=== PATIENT | female | born 1970 | race Caucasian/White ===

== ENCOUNTER 2021-06-08 22:02 | Inpatient (IN) | payer MEDICAID, SELFPAY ==
[~2021-06-08] VITALS: Ht 160 cm; Wt 100.2 kg
[2021-06-08] MEDS ORDERED: ACETAMINOPHEN 325MG TABLET PO STA (22:46)
[2021-06-08] MEDS ORDERED: SODIUM CHLORIDE 0.9% 1,000 ML IV ONE (23:00)
[2021-06-08 23:10] LABS: HEMATOCRIT. 39.4 % (36.0-48.0); HEMOGLOBIN. 13.5 g/dL (12.0-16.0); LYMPHOCYTES % 13.6 % (20.0-50.0); MEAN CORPUSCULAR HEMOGLOBIN 31.5 pg (28.0-32.0); MEAN CORPUSCULAR VOLUME 91.9 fL (81.0-99.0); MEAN PLATELET VOLUME 9.6 fl (7.4-10.4); MONOCYTES % 2.9 % (2.0-8.0); NEUTROPHILS % 83.5 % (40.0-76.0); PLATELET 165 x1000/uL (130-400); RED BLOOD CELL COUNT 4.29 mill/uL (4.2-5.4); RED CELL DISTRIBUTION WIDTH 13.1 % (11.6-14.6)
[2021-06-08 23:17] LABS: CHLORIDE 106 mEq/L (98-107)
[2021-06-09 00:20] LABS: BG BASE EXCESS -1.9 mmol/L (-2.0-2.0); BG CARBOXYHEMOGLOBIN 0.3 % (0.5-1.5); BG DEOXYHEMOGLOBIN 4.9 % (0.0-5.0); BG HCO3 ACT 22.1 mmol/L (22.0-26.0); BG METHEMOGLOBIN 0.2 % (0.0-1.5); BG OXYGEN SATURATION 95.1 % (92.0-98.5); BG OXYHEMOGLOBIN 94.6 % (94.0-97.0); BG PCO2 35.4 mmHg (35.0-45.0); BG PH 7.414 (7.350-7.450); BG PO2 77.6 mmHg (75.0-100.0); BG SAMPLE SITE LEFT RADIAL; BG TOTAL HEMOGLOBIN 12.6 g/dL (12.0-18.0); BG VENT MODE NASAL CANNULA
[2021-06-09] MEDS ORDERED: ONDANSETRON HCL 4MG/2ML INJ IV PRN (09:45)
[2021-06-09] MEDS ORDERED: CLONIDINE 0.1MG TABLET PO PRN (09:45)
[2021-06-09] MEDS ORDERED: DIPHENHYDRAMINE 50MG/ML VIAL IV PRN (09:45)
[2021-06-09] MEDS ORDERED: CEFTRIAXONE 1 G PREMIX 50 ML IV SCH (10:00)
[2021-06-09] MEDS ORDERED: AZITHROMYCIN 500 MG in DEXT 5% WATER 250 ML IV SCH (10:00)
[2021-06-09] MEDS: ENOXAPARIN 30MG/0.3ML SYR SUBCUT SCH ×2 (10:55→20:41)
[2021-06-09] MEDS: ACETAMINOPHEN 325MG TABLET PO PRN ×3 (10:55→23:54)
[2021-06-09] MEDS: DEXAMETHASONE 10 MG/ML VIAL IV SCH (10:55)
[2021-06-09 12:02] LABS: CLARITY URINE CLEAR (CLEAR); COLOR URINE YELLOW (YELLOW); KETONES URINE 2+ (NEGATIVE); LEUKOCYTE ESTERASE URINE NEGATIVE (NEGATIVE); NITRITE URINE NEGATIVE (NEGATIVE); OCCULT BLOOD URINE NEGATIVE (NEGATIVE); PROTEIN URINE 1+ (NEGATIVE); SPECIFIC GRAVITY URINE 1.045 (1.005-1.030)
[2021-06-09] MEDS ORDERED: DEXTROSE 50% WATER 50ML SYRINGE IV PRN (12:45)
[2021-06-09] MEDS: INSULIN LISPRO 100 UNITS/ML SUBCUT SCH ×3 (13:04→20:43)
[2021-06-09] MEDS: BLOOD SUGAR DIAGNOSTIC STRIP TEST SCH ×2 (17:02→20:43)
[2021-06-10 05:20] LABS: BASOPHILS % 0.1 % (0.0-2.0); HEMATOCRIT. 37.2 % (36.0-48.0); HEMOGLOBIN. 12.9 g/dL (12.0-16.0); LYMPHOCYTES % 15.5 % (20.0-50.0); MEAN CORPUSCULAR HEMOGLOBIN 31.8 pg (28.0-32.0); MEAN CORPUSCULAR VOLUME 91.9 fL (81.0-99.0); MEAN PLATELET VOLUME 9.7 fl (7.4-10.4); MONOCYTES % 6.1 % (2.0-8.0); NEUTROPHILS % 78.3 % (40.0-76.0); PLATELET 198 x1000/uL (130-400); RED BLOOD CELL COUNT 4.05 mill/uL (4.2-5.4); RED CELL DISTRIBUTION WIDTH 13.1 % (11.6-14.6)
[2021-06-10 05:29] LABS: CHLORIDE 110 mEq/L (98-107)
[2021-06-10 05:39] LABS: LDL CHOLESTEROL 72 mg/dL (5-100)
[2021-06-10 05:40] LABS: HDL CHOLESTEROL 30 mg/dL (40-59)
[2021-06-10] MEDS: BLOOD SUGAR DIAGNOSTIC STRIP TEST SCH ×4 (06:34→21:00)
[2021-06-10] MEDS: ACETAMINOPHEN 325MG TABLET PO PRN ×2 (06:39→22:23)
[2021-06-10] MEDS: INSULIN LISPRO 100 UNITS/ML SUBCUT SCH ×4 (06:40→22:21)
[2021-06-10] MEDS: ENOXAPARIN 30MG/0.3ML SYR SUBCUT SCH ×2 (10:12→22:22)
[2021-06-10] MEDS ORDERED: TOPUD PO (10:37)
[2021-06-10] MEDS ORDERED: METF-874 MT (10:37)
[2021-06-10 11:12] VITALS: BP 120/58
[2021-06-10] MEDS ORDERED: CEFTRIAXONE 1,000 MG in DEXTROSE 5% WATER 50 ML IV SCH (11:30)
[2021-06-10] MEDS: CEFTRIAXONE 1,000 MG in DEXTROSE 5% WATER 50 ML IV SCH (11:41)
[2021-06-10] MEDS: DEXAMETHASONE 10 MG/ML VIAL IV SCH (11:41)
[2021-06-10] MEDS: AZITHROMYCIN 500 MG in DEXT 5% WATER 250 ML IV SCH (11:42)
[2021-06-10 12:00] VITALS: BP 108/61
[2021-06-10] MEDS: BENZONATATE 100MG CAPSULE PO PRN (15:20)
[2021-06-10 16:00] VITALS: BP 135/81
[2021-06-10 20:00] VITALS: BP 105/56
[2021-06-10] MEDS ORDERED: INSULIN GLARGINE UD 100 UNITS/ML SYR SUBCUT SCH (22:00)
[2021-06-10] MEDS: GUAIFENESIN 200MG/10ML SUGAR FREE UDC PO PRN (22:22)
[2021-06-11 00:21] VITALS: BP 111/58
[2021-06-11 04:00] VITALS: BP 104/58
[2021-06-11] MEDS: GUAIFENESIN 200MG/10ML SUGAR FREE UDC PO PRN ×3 (05:42→18:23)
[2021-06-11] MEDS: BLOOD SUGAR DIAGNOSTIC STRIP TEST SCH ×4 (07:38→21:00)
[2021-06-11 08:00] VITALS: BP 99/60
[2021-06-11] MEDS: DEXAMETHASONE 10 MG/ML VIAL IV SCH (09:11)
[2021-06-11] MEDS: BENZONATATE 100MG CAPSULE PO PRN ×2 (09:11→21:16)
[2021-06-11] MEDS: INSULIN LISPRO 100 UNITS/ML SUBCUT SCH ×4 (09:12→21:17)
[2021-06-11] MEDS: ENOXAPARIN 30MG/0.3ML SYR SUBCUT SCH ×2 (09:12→21:16)
[2021-06-11 12:00] VITALS: BP 125/69
[2021-06-11] MEDS: ALBUTEROL 6.7GM HFA INHALER ORI PRN (12:12)
[2021-06-11] MEDS: CEFTRIAXONE 1,000 MG in DEXTROSE 5% WATER 50 ML IV SCH (12:12)
[2021-06-11] MEDS: PANTOPRAZOLE 40MG DR TABLET PO SCH (13:18)
[2021-06-11] MEDS: AZITHROMYCIN 500 MG in DEXT 5% WATER 250 ML IV SCH (13:18)
[2021-06-11] MEDS ORDERED: INSULIN GLARGINE UD 100 UNITS/ML SYR SUBCUT NR (15:00)
[2021-06-11] MEDS: ACETAMINOPHEN 325MG TABLET PO PRN ×2 (15:54→21:29)
[2021-06-11 16:00] VITALS: BP 111/64
[2021-06-11] MEDS: IVERMECTIN 3 MG TABLET PO SCH (18:23)
[2021-06-11 20:00] VITALS: BP 102/54
[2021-06-11] MEDS: INSULIN GLARGINE UD 100 UNITS/ML SYR SUBCUT SCH (21:16)
[2021-06-12] VITALS: BP 114/59
[2021-06-12] MEDS: ALBUTEROL 6.7GM HFA INHALER ORI PRN (03:05)
[2021-06-12] MEDS: GUAIFENESIN 200MG/10ML SUGAR FREE UDC PO PRN ×3 (03:05→15:45)
[2021-06-12 04:00] VITALS: BP 102/54
[2021-06-12] MEDS: BLOOD SUGAR DIAGNOSTIC STRIP TEST SCH ×4 (07:46→21:00)
[2021-06-12] MEDS: INSULIN LISPRO 100 UNITS/ML SUBCUT SCH ×4 (07:51→22:42)
[2021-06-12 08:00] VITALS: BP 107/62
[2021-06-12] MEDS: BENZONATATE 100MG CAPSULE PO PRN ×2 (08:10→22:41)
[2021-06-12] MEDS: DEXAMETHASONE 10 MG/ML VIAL IV SCH (08:10)
[2021-06-12] MEDS: PANTOPRAZOLE 40MG DR TABLET PO SCH (08:10)
[2021-06-12] MEDS: ACETAMINOPHEN 325MG TABLET PO PRN ×3 (08:11→22:42)
[2021-06-12] MEDS: ENOXAPARIN 30MG/0.3ML SYR SUBCUT SCH ×2 (08:11→22:41)
[2021-06-12] MEDS: INSULIN GLARGINE UD 100 UNITS/ML SYR SUBCUT SCH ×2 (11:31→22:42)
[2021-06-12] MEDS: CEFTRIAXONE 1,000 MG in DEXTROSE 5% WATER 50 ML IV SCH (11:32)
[2021-06-12 12:00] VITALS: BP 146/64
[2021-06-12] MEDS: AZITHROMYCIN 500 MG in DEXT 5% WATER 250 ML IV SCH (12:45)
[2021-06-12 16:00] VITALS: BP 116/65
[2021-06-12] MEDS: IVERMECTIN 3 MG TABLET PO SCH (17:34)
[2021-06-12 20:00] VITALS: BP 125/69
[2021-06-13] VITALS: BP 103/56
[2021-06-13] MEDS: ALBUTEROL 6.7GM HFA INHALER ORI PRN (02:25)
[2021-06-13] MEDS: GUAIFENESIN 200MG/10ML SUGAR FREE UDC PO PRN (02:25)
[2021-06-13 04:00] VITALS: BP 103/64
[2021-06-13 06:57] LABS: CHLORIDE 105 mEq/L (98-107)
[2021-06-13 06:59] LABS: BASOPHILS % 0.1 % (0.0-2.0); EOSINOPHILS % 0.8 % (0.0-5.0); HEMATOCRIT. 37.3 % (36.0-48.0); HEMOGLOBIN. 12.9 g/dL (12.0-16.0); LYMPHOCYTES % 32.7 % (20.0-50.0); MEAN CORPUSCULAR HEMOGLOBIN 31.2 pg (28.0-32.0); MEAN CORPUSCULAR VOLUME 90.4 fL (81.0-99.0); MEAN PLATELET VOLUME 9.1 fl (7.4-10.4); MONOCYTES % 6.8 % (2.0-8.0); NEUTROPHILS % 59.6 % (40.0-76.0); PLATELET 262 x1000/uL (130-400); RED BLOOD CELL COUNT 4.13 mill/uL (4.2-5.4); RED CELL DISTRIBUTION WIDTH 12.9 % (11.6-14.6)
[2021-06-13] MEDS: BLOOD SUGAR DIAGNOSTIC STRIP TEST SCH ×4 (07:40→21:19)
[2021-06-13 08:00] VITALS: BP 99/57
[2021-06-13] MEDS: INSULIN LISPRO 100 UNITS/ML SUBCUT SCH ×4 (08:10→21:18)
[2021-06-13] MEDS ORDERED: AZITHROMYCIN 500 MG TABLET PO SCH (09:00)
[2021-06-13] MEDS: ACETAMINOPHEN 325MG TABLET PO PRN (09:07)
[2021-06-13] MEDS: BENZONATATE 100MG CAPSULE PO PRN (09:07)
[2021-06-13] MEDS: PANTOPRAZOLE 40MG DR TABLET PO SCH (09:07)
[2021-06-13] MEDS: DEXAMETHASONE 10 MG/ML VIAL IV SCH (09:08)
[2021-06-13] MEDS: ENOXAPARIN 30MG/0.3ML SYR SUBCUT SCH ×2 (09:37→21:19)
[2021-06-13] MEDS: CEFTRIAXONE 1,000 MG in DEXTROSE 5% WATER 50 ML IV SCH (10:57)
[2021-06-13] MEDS: INSULIN GLARGINE UD 100 UNITS/ML SYR SUBCUT SCH ×2 (10:57→21:19)
[2021-06-13 12:00] VITALS: BP 103/52
[2021-06-13 16:00] VITALS: BP 110/65
[2021-06-13] MEDS: IVERMECTIN 3 MG TABLET PO SCH (17:19)
[2021-06-13 20:00] VITALS: BP 120/69
[2021-06-14] VITALS: BP 120/67
[2021-06-14] MEDS: GUAIFENESIN 200MG/10ML SUGAR FREE UDC PO PRN ×3 (01:25→22:52)
[2021-06-14 04:00] VITALS: BP 103/59
[2021-06-14] MEDS: ACETAMINOPHEN 325MG TABLET PO PRN (05:54)
[2021-06-14 08:00] VITALS: BP 91/57
[2021-06-14] MEDS: INSULIN LISPRO 100 UNITS/ML SUBCUT SCH ×4 (08:10→22:45)
[2021-06-14] MEDS: BLOOD SUGAR DIAGNOSTIC STRIP TEST SCH ×4 (08:38→21:00)
[2021-06-14 08:58] LABS: BASOPHILS % 0.1 % (0.0-2.0); EOSINOPHILS % 1.7 % (0.0-5.0); HEMATOCRIT. 36.9 % (36.0-48.0); HEMOGLOBIN. 12.5 g/dL (12.0-16.0); MEAN CORPUSCULAR HEMOGLOBIN 30.5 pg (28.0-32.0); MEAN CORPUSCULAR VOLUME 90.4 fL (81.0-99.0); MEAN PLATELET VOLUME 8.8 fl (7.4-10.4); MONOCYTES % 6.9 % (2.0-8.0); NEUTROPHILS % 67.3 % (40.0-76.0); PLATELET 270 x1000/uL (130-400); RED BLOOD CELL COUNT 4.09 mill/uL (4.2-5.4); RED CELL DISTRIBUTION WIDTH 12.9 % (11.6-14.6)
[2021-06-14 09:01] LABS: CHLORIDE 106 mEq/L (98-107)
[2021-06-14] MEDS: DEXAMETHASONE 10 MG/ML VIAL IV SCH (09:16)
[2021-06-14] MEDS: FAMOTIDINE 20MG TABLET PO SCH ×2 (09:16→22:44)
[2021-06-14] MEDS: ENOXAPARIN 30MG/0.3ML SYR SUBCUT SCH ×2 (09:16→22:44)
[2021-06-14] MEDS: INSULIN GLARGINE UD 100 UNITS/ML SYR SUBCUT SCH ×2 (10:46→22:45)
[2021-06-14 12:00] VITALS: BP 95/56
[2021-06-14 16:00] VITALS: BP 127/67
[2021-06-14] MEDS ORDERED: POTASSIUM CHLORIDE 20MEQ TABLET SR PO NR (17:03)
[2021-06-14] MEDS: IVERMECTIN 3 MG TABLET PO SCH (17:34)
[2021-06-14 20:00] VITALS: BP 104/65
[2021-06-14] MEDS: ALBUTEROL 6.7GM HFA INHALER ORI PRN (22:52)
[2021-06-15] VITALS: BP 104/57
[2021-06-15 04:00] VITALS: BP 85/48
[2021-06-15] MEDS: ACETAMINOPHEN 325MG TABLET PO PRN ×2 (05:44→11:13)
[2021-06-15] MEDS: GUAIFENESIN 200MG/10ML SUGAR FREE UDC PO PRN ×3 (05:44→22:19)
[2021-06-15] MEDS: INSULIN LISPRO 100 UNITS/ML SUBCUT SCH ×4 (07:59→22:19)
[2021-06-15] MEDS: BLOOD SUGAR DIAGNOSTIC STRIP TEST SCH ×4 (07:59→21:00)
[2021-06-15 08:00] VITALS: BP 97/54
[2021-06-15] MEDS: FAMOTIDINE 20MG TABLET PO SCH ×2 (11:01→22:10)
[2021-06-15] MEDS: ENOXAPARIN 30MG/0.3ML SYR SUBCUT SCH ×2 (11:01→22:10)
[2021-06-15] MEDS: DEXAMETHASONE 10 MG/ML VIAL IV SCH (11:01)
[2021-06-15] MEDS: INSULIN GLARGINE UD 100 UNITS/ML SYR SUBCUT SCH ×2 (11:07→22:11)
[2021-06-15 12:00] VITALS: BP 95/46
[2021-06-15] MEDS: BENZONATATE 100MG CAPSULE PO PRN (14:41)
[2021-06-15 16:00] VITALS: BP 104/67
[2021-06-15] MEDS: IVERMECTIN 3 MG TABLET PO SCH (17:12)
[2021-06-15 20:00] VITALS: BP 109/63
[2021-06-16] VITALS: BP 99/48
[2021-06-16] MEDS: ACETAMINOPHEN 325MG TABLET PO PRN ×3 (03:15→17:12)
[2021-06-16] MEDS: GUAIFENESIN 200MG/10ML SUGAR FREE UDC PO PRN ×3 (03:15→17:12)
[2021-06-16 04:00] VITALS: BP 107/68
[2021-06-16 07:29] LABS: BASOPHILS % 0.2 % (0.0-2.0); CHLORIDE 107 mEq/L (98-107); EOSINOPHILS % 1.1 % (0.0-5.0); HEMATOCRIT. 37.7 % (36.0-48.0); HEMOGLOBIN. 12.3 g/dL (12.0-16.0); MEAN CORPUSCULAR HEMOGLOBIN 30.2 pg (28.0-32.0); MEAN CORPUSCULAR VOLUME 92.3 fL (81.0-99.0); MEAN PLATELET VOLUME 9.5 fl (7.4-10.4); MONOCYTES % 6.3 % (2.0-8.0); NEUTROPHILS % 72.4 % (40.0-76.0); PLATELET 276 x1000/uL (130-400); RED BLOOD CELL COUNT 4.08 mill/uL (4.2-5.4); RED CELL DISTRIBUTION WIDTH 12.8 % (11.6-14.6)
[2021-06-16] MEDS: BLOOD SUGAR DIAGNOSTIC STRIP TEST SCH ×4 (07:31→20:45)
[2021-06-16 08:00] VITALS: BP 92/59
[2021-06-16] MEDS: INSULIN LISPRO 100 UNITS/ML SUBCUT SCH ×4 (08:10→20:44)
[2021-06-16] MEDS: DEXAMETHASONE 10 MG/ML VIAL IV SCH (09:27)
[2021-06-16] MEDS: FAMOTIDINE 20MG TABLET PO SCH ×2 (09:27→20:44)
[2021-06-16] MEDS: ENOXAPARIN 30MG/0.3ML SYR SUBCUT SCH ×2 (09:29→20:44)
[2021-06-16] MEDS: INSULIN GLARGINE UD 100 UNITS/ML SYR SUBCUT SCH ×2 (09:29→22:26)
[2021-06-16 12:00] VITALS: BP_SYST 111; BP_SYST 82; BP_DIAS 46; BP_DIAS 69
[2021-06-16 16:00] VITALS: BP 111/69
[2021-06-16 20:00] VITALS: BP 100/57
[2021-06-17] MEDS: GUAIFENESIN 200MG/10ML SUGAR FREE UDC PO PRN ×2 (02:25→08:11)
[2021-06-17] MEDS: ACETAMINOPHEN 325MG TABLET PO PRN ×2 (02:27→14:37)
[2021-06-17 04:00] VITALS: BP 103/53
[2021-06-17] MEDS: INSULIN LISPRO 100 UNITS/ML SUBCUT SCH ×4 (06:27→21:27)
[2021-06-17] MEDS: BLOOD SUGAR DIAGNOSTIC STRIP TEST SCH ×4 (06:27→21:26)
[2021-06-17 08:00] VITALS: BP 105/63
[2021-06-17] MEDS: ENOXAPARIN 30MG/0.3ML SYR SUBCUT SCH ×2 (08:11→21:26)
[2021-06-17] MEDS: FAMOTIDINE 20MG TABLET PO SCH ×2 (08:11→21:25)
[2021-06-17] MEDS: DEXAMETHASONE 10 MG/ML VIAL IV SCH (08:11)
[2021-06-17] MEDS: INSULIN GLARGINE UD 100 UNITS/ML SYR SUBCUT SCH ×2 (09:30→21:26)
[2021-06-17 12:00] VITALS: BP 110/61
[2021-06-17 16:00] VITALS: BP 110/59
[2021-06-17 20:00] VITALS: BP 108/76
[2021-06-17] MEDS: BENZONATATE 100MG CAPSULE PO PRN (21:32)
[2021-06-18] VITALS: BP 91/50
[2021-06-18 04:00] VITALS: BP 102/58
[2021-06-18] MEDS: BLOOD SUGAR DIAGNOSTIC STRIP TEST SCH ×4 (06:37→20:52)
[2021-06-18] MEDS: ACETAMINOPHEN 325MG TABLET PO PRN ×2 (06:39→16:43)
[2021-06-18] MEDS: INSULIN LISPRO 100 UNITS/ML SUBCUT SCH ×4 (07:09→20:54)
[2021-06-18] MEDS: GUAIFENESIN 200MG/10ML SUGAR FREE UDC PO PRN ×2 (07:59→17:12)
[2021-06-18 08:00] VITALS: BP 99/44
[2021-06-18] MEDS: DEXAMETHASONE 10 MG/ML VIAL IV SCH (08:00)
[2021-06-18] MEDS: ENOXAPARIN 30MG/0.3ML SYR SUBCUT SCH ×2 (08:00→20:55)
[2021-06-18] MEDS: FAMOTIDINE 20MG TABLET PO SCH ×2 (08:00→20:53)
[2021-06-18] MEDS: INSULIN GLARGINE UD 100 UNITS/ML SYR SUBCUT SCH ×2 (09:45→20:53)
[2021-06-18 12:00] VITALS: BP 118/86
[2021-06-18 16:00] VITALS: BP 107/56
[2021-06-18 20:00] VITALS: BP 95/45
[2021-06-18] MEDS: BENZONATATE 100MG CAPSULE PO PRN (20:57)
[2021-06-19] VITALS: BP 97/54
[2021-06-19 04:00] VITALS: BP 107/63
[2021-06-19] MEDS: BLOOD SUGAR DIAGNOSTIC STRIP TEST SCH ×4 (06:35→21:00)
[2021-06-19] MEDS: INSULIN LISPRO 100 UNITS/ML SUBCUT SCH ×4 (08:10→22:20)
[2021-06-19] MEDS: FAMOTIDINE 20MG TABLET PO SCH ×2 (09:06→21:20)
[2021-06-19] MEDS: DEXAMETHASONE 10 MG/ML VIAL IV SCH (09:06)
[2021-06-19] MEDS: ACETAMINOPHEN 325MG TABLET PO PRN ×2 (09:07→16:26)
[2021-06-19] MEDS: ENOXAPARIN 30MG/0.3ML SYR SUBCUT SCH ×2 (09:07→21:20)
[2021-06-19] MEDS: GUAIFENESIN 200MG/10ML SUGAR FREE UDC PO PRN ×2 (10:35→16:11)
[2021-06-19] MEDS: INSULIN GLARGINE UD 100 UNITS/ML SYR SUBCUT SCH ×2 (10:53→22:20)
[2021-06-19 12:00] VITALS: BP 88/46
[2021-06-19 16:00] VITALS: BP 98/54
[2021-06-19 20:00] VITALS: BP 100/53
[2021-06-20 00:41] VITALS: BP 125/63
[2021-06-20] MEDS: ACETAMINOPHEN 325MG TABLET PO PRN ×3 (03:31→20:18)
[2021-06-20 04:00] VITALS: BP 107/65
[2021-06-20] MEDS: INSULIN LISPRO 100 UNITS/ML SUBCUT SCH ×4 (08:10→20:21)
[2021-06-20] MEDS: BLOOD SUGAR DIAGNOSTIC STRIP TEST SCH ×4 (08:18→20:22)
[2021-06-20] MEDS: FAMOTIDINE 20MG TABLET PO SCH ×2 (10:11→20:18)
[2021-06-20] MEDS: DEXAMETHASONE 10 MG/ML VIAL IV SCH (10:12)
[2021-06-20] MEDS: ENOXAPARIN 30MG/0.3ML SYR SUBCUT SCH ×2 (10:12→20:19)
[2021-06-20] MEDS: INSULIN GLARGINE UD 100 UNITS/ML SYR SUBCUT SCH ×2 (10:13→20:23)
[2021-06-20 12:00] VITALS: BP 112/64
[2021-06-20 16:00] VITALS: BP 97/43
[2021-06-20 20:00] VITALS: BP 95/56
[2021-06-20] MEDS: GUAIFENESIN 200MG/10ML SUGAR FREE UDC PO PRN (20:18)
[2021-06-21] VITALS: BP 95/57
[2021-06-21 04:00] VITALS: BP 83/50
[2021-06-21 08:00] VITALS: BP 98/53
[2021-06-21] MEDS: INSULIN LISPRO 100 UNITS/ML SUBCUT SCH ×4 (08:10→20:04)
[2021-06-21] MEDS: BLOOD SUGAR DIAGNOSTIC STRIP TEST SCH ×4 (08:32→20:04)
[2021-06-21] MEDS: ENOXAPARIN 30MG/0.3ML SYR SUBCUT SCH ×2 (08:52→20:04)
[2021-06-21] MEDS: GUAIFENESIN 200MG/10ML SUGAR FREE UDC PO PRN ×2 (08:52→17:49)
[2021-06-21] MEDS: DEXAMETHASONE 10 MG/ML VIAL IV SCH (08:53)
[2021-06-21] MEDS: ACETAMINOPHEN 325MG TABLET PO PRN ×2 (08:53→15:12)
[2021-06-21] MEDS: FAMOTIDINE 20MG TABLET PO SCH ×2 (08:53→20:03)
[2021-06-21 09:42] LABS: BG BASE EXCESS 0.7 mmol/L (-2.0-2.0); BG CARBOXYHEMOGLOBIN 0.1 % (0.5-1.5); BG DEOXYHEMOGLOBIN 9.7 % (0.0-5.0); BG FRACTION INSPIRED OXYGEN 30; BG HCO3 ACT 24.5 mmol/L (22.0-26.0); BG METHEMOGLOBIN 0.2 % (0.0-1.5); BG OXYGEN SATURATION 90.3 % (92.0-98.5); BG PCO2 36.5 mmHg (35.0-45.0); BG PH 7.444 (7.350-7.450); BG PO2 58.5 mmHg (75.0-100.0); BG SAMPLE SITE RIGHT BRACHIAL; BG TOTAL HEMOGLOBIN 13.9 g/dL (12.0-18.0); BG VENT MODE NASAL CANNULA
[2021-06-21] MEDS: INSULIN GLARGINE UD 100 UNITS/ML SYR SUBCUT SCH ×2 (09:49→22:00)
[2021-06-21 12:00] VITALS: BP 101/56
[2021-06-21 16:00] VITALS: BP 92/52
[2021-06-21 20:00] VITALS: BP 106/47
[2021-06-22] VITALS: BP 120/68
[2021-06-22 04:00] VITALS: BP 118/68
[2021-06-22] MEDS: BLOOD SUGAR DIAGNOSTIC STRIP TEST SCH ×4 (04:41→21:49)
[2021-06-22 06:07] LABS: CHLORIDE 104 mEq/L (98-107)
[2021-06-22 06:20] LABS: BASOPHILS % 0.4 % (0.0-2.0); EOSINOPHILS % 0.3 % (0.0-5.0); HEMATOCRIT. 39.4 % (36.0-48.0); HEMOGLOBIN. 13.5 g/dL (12.0-16.0); LYMPHOCYTES % 35.3 % (20.0-50.0); MEAN CORPUSCULAR HEMOGLOBIN 31.3 pg (28.0-32.0); MEAN CORPUSCULAR VOLUME 91.5 fL (81.0-99.0); MONOCYTES % 8.1 % (2.0-8.0); NEUTROPHILS % 55.9 % (40.0-76.0); PLATELET 251 x1000/uL (130-400); RED BLOOD CELL COUNT 4.31 mill/uL (4.2-5.4); RED CELL DISTRIBUTION WIDTH 12.6 % (11.6-14.6)
[2021-06-22 08:00] VITALS: BP 114/62
[2021-06-22] MEDS: ENOXAPARIN 30MG/0.3ML SYR SUBCUT SCH ×2 (09:05→21:53)
[2021-06-22] MEDS: FAMOTIDINE 20MG TABLET PO SCH ×2 (09:05→21:54)
[2021-06-22] MEDS: INSULIN LISPRO 100 UNITS/ML SUBCUT SCH ×4 (09:27→21:56)
[2021-06-22] MEDS: INSULIN GLARGINE UD 100 UNITS/ML SYR SUBCUT SCH ×2 (10:57→21:57)
[2021-06-22] MEDS: ACETAMINOPHEN 325MG TABLET PO PRN ×2 (11:04→21:54)
[2021-06-22] MEDS: GUAIFENESIN 200MG/10ML SUGAR FREE UDC PO PRN (11:04)
[2021-06-22 12:00] VITALS: BP 87/54
[2021-06-22 14:35] LABS: BG BASE EXCESS -0.1 mmol/L (-2.0-2.0); BG CARBOXYHEMOGLOBIN 0.5 % (0.5-1.5); BG DEOXYHEMOGLOBIN 9.4 % (0.0-5.0); BG FRACTION INSPIRED OXYGEN 21; BG HCO3 ACT 23.3 mmol/L (22.0-26.0); BG METHEMOGLOBIN 0.2 % (0.0-1.5); BG OXYGEN SATURATION 90.5 % (92.0-98.5); BG OXYHEMOGLOBIN 89.9 % (94.0-97.0); BG PCO2 34.2 mmHg (35.0-45.0); BG PH 7.451 (7.350-7.450); BG PO2 58.2 mmHg (75.0-100.0); BG SAMPLE SITE LEFT BRACHIAL; BG TOTAL HEMOGLOBIN 13.9 g/dL (12.0-18.0); BG VENT MODE ROOM AIR
[2021-06-22 16:00] VITALS: BP 93/58
[2021-06-22 20:00] VITALS: BP 109/64
[2021-06-23] VITALS: BP 108/63
[2021-06-23 04:00] VITALS: BP 85/47
[2021-06-23] MEDS: INSULIN LISPRO 100 UNITS/ML SUBCUT SCH (05:36)
[2021-06-23] MEDS: BLOOD SUGAR DIAGNOSTIC STRIP TEST SCH (05:36)
[2021-06-23 08:00] VITALS: BP 75/45
[2021-06-23] MEDS: FAMOTIDINE 20MG TABLET PO SCH (08:53)
[2021-06-23] MEDS: ENOXAPARIN 30MG/0.3ML SYR SUBCUT SCH (08:53)
[2021-06-23] MEDS: ACETAMINOPHEN 325MG TABLET PO PRN (08:57)
[2021-06-23 09:00] VITALS: BP 88/51
[2021-06-23] MEDS: INSULIN GLARGINE UD 100 UNITS/ML SYR SUBCUT SCH (11:12)
[2021-06-23 12:00] VITALS: BP_SYST 87; BP_DIAS 39; BP_DIAS 49
[2021-06-23 14:26] VITALS: BP 87/39
== END 2021-06-23 15:00 | disposition home or self-care (01) | DRG 720 ==
LOC: ER 22:26 → MICUSO 06-09 01:52 → 7WST 06-10 08:39 → 8WST 06-22 09:47
PROVIDERS: ADMIT Internal Medicine; ATTEND Internal Medicine
DX: A41.89 Other specified sepsis (principal); J96.01 Acute respiratory failure with hypoxia; J12.82 Pneumonia due to coronavirus disease 2019; E44.0 Moderate protein-calorie malnutrition; U07.1 COVID-19; J15.9 Unspecified bacterial pneumonia; D89.839 Cytokine release syndrome, grade unspecified; I10 Essential (primary) hypertension; R74.01 Elevation of levels of liver transaminase levels; E66.01 Morbid (severe) obesity due to excess calories; R65.20 Severe sepsis without septic shock; E11.65 Type 2 diabetes mellitus with hyperglycemia; Z68.39 Body mass index [BMI] 39.0-39.9, adult; Z82.49 Family history of ischemic heart disease and other diseases of the circulatory system
CPT/HCPCS: 36415; 36600; 71045; 80048; 80053; 80061; 81003; 82010; 82375; 82728; 82805; 82962; 83036; 83615; 83880; 84145; 84443; 84484; 85025; 85379; 86140; 87426; 93005; 93970; 99291; C1893; J0456; J0696; J1100; J1200; J1650; J1815; J7030; J7040; J7060